=== PATIENT | female | born 1950 | race Caucasian/White ===

== ENCOUNTER 2023-07-25 09:51 | Outpatient (CLI) | payer MEDICARE, SELFPAY | END 2023-07-25 09:52 | disposition home or self-care (01) | LOC: ANHBWCAUD 09:52 | PROVIDERS: PCP Family Medicine; Visit Provider Otolaryngology | DX: H65.91 Unspecified nonsuppurative otitis media, right ear (principal); H90.3 Sensorineural hearing loss, bilateral | CPT/HCPCS: 92557; 92567 ==